=== PATIENT | female | born 2005 | race Caucasian/White ===

== ENCOUNTER 2024-05-15 09:28 | Outpatient (CLI) | payer MEDICAID, SELFPAY | END 2024-05-15 09:29 | disposition home or self-care (01) | LOC: NFLDREF 09:29 | PROVIDERS: PCP Family Medicine; Visit Provider Advanced Practice Midwife | DX: Z34.92 Encounter for supervision of normal pregnancy, unspecified, second trimester (principal); Z3A.15 15 weeks gestation of pregnancy | CPT/HCPCS: 80306 ==

== ENCOUNTER 2024-06-12 07:50 | Outpatient (CLI) | payer MEDICAID, SELFPAY ==
--- NOTE | 2024-06-12 08:15 | CRLHL7_ITS ---
For Patients: As a result of the Century Cures Act, medical imaging exams and procedure reports are released immediately into your electronic medical record. You may view this report before your referring provider. If you have questions, please contact your health care provider. INDICATION: Evaluate anatomy. COMPARISON: 04/10/2024 TECHNIQUE: Real time herzog scale imaging of the fetus was performed as well as color Doppler analysis of the umbilical vessels. FINDINGS: Sonographic imaging demonstrates a single living intrauterine gestation. Fetus demonstrates a regular cardiac rate of 139 beats per minute. Fetus has a vertex position. The placenta lies anterior without evidence of placenta previa. Placental edge 2.4 cm from the internal cervical os. Amniotic fluid volume appears normal. Single deepest vertical pocket: 2.9 cm. The cervix is closed and measures 3.9 cm in length. The composite ultrasound gestational age is calculated at 18 weeks 6 days with an estimated sonographic due date of 11/07/2024. The estimated weight is 265 grams which lies at the 15th %. The following biometric measurements were obtained: Biparietal diameter: 4.2 cm/18 weeks 5 days 19th% Head circumference: 15.5 cm/18 weeks 3 day 5th% Abdominal circumference: 13.6 cm/19 weeks 0 days 27th% Femur length: 2.9 cm/19 weeks 0 days 23rd% The HC/AC ratio measures: 1.14 range (1.09-1.26) On anatomic survey, there is a normal appearance of the cerebral ventricles, cavum septi pellucidi, cisterna magna and cerebellum. The nose, lips, and facial profile appear normal. The cervical, thoracic and lumbar spine are well visualized and appear normal. There is a normal four-chamber heart view and the left and right ventricular outflow tracts appear normal. The diaphragm and stomach appear normal. The kidneys and bladder also appear normal. There is a normal three-vessel cord and cord insertion site. The four extremities appear normal. IMPRESSION: Normal OB ultrasound exam with concordance of clinical and sonographic dating. No intrinsic abnormalities noted on anatomic survey. Dictated by Isrrael Garza MD @ 06/12/2024 10:56:41 AM (Electronically Signed)
== END 2024-06-12 07:51 | disposition home or self-care (01) ==
LOC: US 07:50
PROVIDERS: PCP Family Medicine; Visit Provider Advanced Practice Midwife
DX: Z34.92 Encounter for supervision of normal pregnancy, unspecified, second trimester (principal); Z3A.18 18 weeks gestation of pregnancy
CPT/HCPCS: 76805; 82565; 82570; 84156; 84450; 84460; 84520; 87491; 87591

== ENCOUNTER 2024-06-13 10:28 | Outpatient (CLI) | payer MEDICAID, SELFPAY | END 2024-06-13 10:29 | disposition home or self-care (01) | LOC: NFLDREF 14:28 | PROVIDERS: PCP Family Medicine; Referring Provider Family Medicine; Visit Provider Obstetrics & Gynecology | DX: R03.0 Elevated blood-pressure reading, without diagnosis of hypertension (principal) | CPT/HCPCS: 82570; 84156 ==

== ENCOUNTER 2024-07-28 20:24 | Observation (INO) | payer MEDICAID, SELFPAY ==
[2024-07-28] VITALS (12 sets, daily range): BP systolic 131–146; BP diastolic 89–106; PULSE 75–110; RESP 20; TEMP 36.5; O2SAT 96–99; BMI 34.3
--- NOTE | 2024-07-28 | CRLHL7_ITS ---
For Patients: As a result of the Century Cures Act, medical imaging exams and procedure reports are released immediately into your electronic medical record. You may view this report before your referring provider. If you have questions, please contact your health care provider. INDICATION: Chest pain. TECHNIQUE: CT chest PE was acquired with 95 cc Isovue 370 IV contrast. COMPARISON: Chest radiograph 07/28/2024. FINDINGS: Heart and vasculature: Contrast opacification of the pulmonary arterial tree is adequate. No sign of pulmonary embolism. Heart size is normal. Thoracic aorta and pulmonary artery are normal in caliber. Lungs and pleura: Lungs and pleural spaces are clear. No suspicious nodules or infiltrates. No pleural effusions, pleural thickening, or pneumothorax. Lymph nodes/mediastinum: No mediastinal, hilar, or axillary adenopathy. Chest wall: No masses. Upper abdomen: Please refer to separate concurrent CT abdomen and pelvis. Bones: Unremarkable for age. IMPRESSION: No evidence of pulmonary embolism or acute intrathoracic abnormality. Please note that all CT scans at this facility use dose modulation, iterative reconstruction, and/or weight-based dosing when appropriate to reduce radiation dose to as low as reasonably achievable. Dictated by Helio Kearns MD @ 07/28/2024 11:39:17 PM (Electronically Signed)
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
--- NOTE | 2024-07-28 20:49 | CRLHL7_ITS ---
For Patients: As a result of the Century Cures Act, medical imaging exams and procedure reports are released immediately into your electronic medical record. You may view this report before your referring provider. If you have questions, please contact your health care provider. INDICATION: Chest pain. TECHNIQUE: Chest 1 views. COMPARISON: None. FINDINGS: Mild cardiomegaly with mild pulmonary vascular congestion. No confluent airspace opacity. No pleural effusion or pneumothorax. No acute osseous abnormality IMPRESSION: Mild cardiomegaly with mild pulmonary vascular congestion. Dictated by Eliseo Vickers MD @ 07/28/2024 10:35:53 PM (Electronically Signed)
[2024-07-28 21:02] LABS: Basophils Percent Auto 0.3 % (0.0-3.0); Eosinophils Percent Auto 0.7 % (0.0-7.0); Hematocrit 35.9 % (33.0-51.0); Hemoglobin* 12.6 gm/dL (12.0-16.0); Immature Granulocytes Pct Auto 6.4 %; Lymphocytes Percent Auto 15.6 % (20-44); Mean Corpuscular HGB Conc 35 gm/dL (32-36); Mean Corpuscular Hemoglobin 33 pg (26-34); Mean Corpuscular Volume 95 fL (80-100); Monocytes Percent Auto 8.3 % (0.0-11.0); Neutrophils Percent Auto 68.7 % (42.0-72.0); Platelet Count* 255 K/uL (140-440); RDW Coefficient of Variation % 13.1 % (11.5-15.5)
[2024-07-28 21:08] LABS: Slide Review Reflex No
[2024-07-28 21:23] LABS: Chloride* 104 mmol/L (96-114)
[2024-07-28 21:24] LABS: Albumin* 4.4 g/dL (3.3-5.0); Sodium* 136 mmol/L (135-149)
[2024-07-28 21:25] LABS: Potassium* 3.7 mmol/L (3.6-5.1)
[2024-07-28 21:27] LABS: Alanine Aminotransferase* 19 U/L (4-35); Alkaline Phosphatase* 80 U/L (40-150); Anion Gap 11 mEq/L (7-15); Aspartate Amino Transferase* 23 U/L (12-35); Bilirubin Total* 0.2 mg/dL (0.1-1.5); Blood Urea Nitrogen* 9 mg/dL (5-24); Carbon Dioxide* 21 mmol/L (20-32); Creatinine* 0.5 mg/dL (0.5-1.5); Est. Creatinine Clearance* 154.98; Estimated Glomerular Filt Rate 138 ml/min; Total Protein* 7.3 g/dL (6.0-8.3)
[2024-07-28 21:28] LABS: Calcium* 9.8 mg/dL (8.4-10.6); Glucose* 100 mg/dL (60-115)
[2024-07-28 21:30] LABS: C Reactive Protein* 1.1 mg/dL (0.5-1.0)
--- NOTE | 2024-07-28 21:51 | CRLHL7_ITS ---
For Patients: As a result of the Century Cures Act, medical imaging exams and procedure reports are released immediately into your electronic medical record. You may view this report before your referring provider. If you have questions, please contact your health care provider. INDICATION: Left upper quadrant pain. TECHNIQUE: CT abdomen and pelvis acquired with 95 cc Isovue 370 IV contrast. COMPARISON: None. FINDINGS: Lower chest: Please refer to separate concurrent CT chest PE. Liver: Unremarkable. Normal in size and attenuation. No suspicious masses. Gallbladder and bile ducts: Unremarkable. No stones or inflammation. No biliary ductal dilatation. Spleen: Unremarkable. Normal in size. No masses. Adrenal glands: Unremarkable. No nodules. Pancreas: Unremarkable. No mass or inflammation. Kidneys: Unremarkable. No suspicious masses, stones, or hydronephrosis. GI tract: Unremarkable. Normal in caliber. No evidence of obstruction. Normal appendix. Lymph nodes: No lymphadenopathy. Vasculature: Unremarkable. Omentum/Peritoneum/Abdominal Wall: Unremarkable. No free air or significant free fluid. Pelvis: Gravid uterus. Bones: Unremarkable for age. IMPRESSION: No acute abdominal or pelvic abnormality. Please note that all CT scans at this facility use dose modulation, iterative reconstruction, and/or weight-based dosing when appropriate to reduce radiation dose to as low as reasonably achievable. Dictated by Helio Kearns MD @ 07/28/2024 11:43:40 PM (Electronically Signed)
[2024-07-28 21:57] LABS: PCR FLU A Negative PCR FLU A (Negative); PCR FLU B Negative PCR FLU B (Negative); PCR RSV Negative PCR RSV (Negative); SARS PCR* Negative SARS-CoV-2 (Negative)
--- NOTE | 2024-07-28 21:57 | PC.OBNST ---
NST Note NST Note Start: 07/28/24 21:55 Freq: ONCE Status: Active Protocol: Document 07/28/24 21:55 [facility] (Rec: 07/28/24 21:57 [facility] [id number]) NST Note 1 Para (# of births) 0 EDC 11/02/24 Gestational Age In Weeks & Days 26 Weeks & 1 Days Patient Presented with Complaint(s) of Pain,Headache If Pain, describe location Chest pain, SOB; seen in ED Reactive Yes Appropriate for Gestational Age Yes RN Beth Duckworth RN Date 07/28/24 Reactive Yes Appropriate for Gestational Age Yes RN Karis Herbert RN Date 07/28/24 OB NST charge Yes Complete NST Note via Write Note Yes The provider's electronic signature indicates the NST is reactive/appropriate for gestational age. *Note to provider: If an addendum is required, open the patient's chart and click on the note under the Nurse/Allied Health tab.
--- NOTE | 2024-07-28 21:58 | PC.OBNST ---
NST Note NST Note Start: 07/28/24 21:55 Freq: ONCE Status: Active Protocol: Document 07/28/24 21:55 [facility] (Rec: 07/28/24 21:57 [facility] [id number]) NST Note 1 Para (# of births) 0 EDC 11/02/24 Gestational Age In Weeks & Days 26 Weeks & 1 Days Patient Presented with Complaint(s) of Pain,Headache If Pain, describe location Chest pain, SOB; seen in ED Reactive Yes Appropriate for Gestational Age Yes RN Beth Duckworth RN Date 07/28/24 Reactive Yes Appropriate for Gestational Age Yes RN Karis Herbert RN Date 07/28/24 OB NST charge Yes Complete NST Note via Write Note Yes The provider's electronic signature indicates the NST is reactive/appropriate for gestational age. *Note to provider: If an addendum is required, open the patient's chart and click on the note under the Nurse/Allied Health tab.
[2024-07-28 22:17] LABS: Amphetamine Screen Urine Negative (Negative); Barbiturate Screen Urine Negative (Negative); Benzodiazepines Screen Urine Negative (Negative); Cannabinoid Screen Urine Negative (Negative); Cocaine Screen Urine Negative (Negative); Methadone Screen Urine Negative (Negative); Methamphetamines Screen Urine Negative (Negative); Opiate Screen Urine Negative (Negative); Oxycodone Screen Urine Negative (Negative); Phencyclidine Screen Urine Negative (Negative); Tricyclic Antidepressant Urine Negative (Negative)
--- NOTE | 2024-07-28 22:21 | ED.NURSE ---
Pt's last BP was 146/95, per Dr Barker, Dr. Ovalle was notified.
[2024-07-28 23:41] LABS: NT Pro B Type NatriureticPept* 73 pg/mL
[2024-07-29] MEDS: ONDANSETRON 2 MG/ML inj 4 MG IVP (00:13)
[2024-07-29] MEDS: MORPHINE 4 MG/ML INJ IVP (00:14)
[2024-07-29] MEDS: FAMOTIDINE 10 MG/ML inj 20 MG IVP (00:15)
[2024-07-29] MEDS: ASPIRIN 81 MG TAB.CHEW PO (00:19)
[2024-07-29] MEDS: LABETALOL HCL 100 MG TABLET PO (00:22)
[2024-07-29 00:42] VITALS: BP 118/69; PULSE 66
[2024-07-29 00:56] LABS: Appearance Urine Clear (Clear); Bilirubin Urine Negative (Negative); Blood Urine Negative (Negative); Color Urine Yellow (Yellow); Glucose Urine Negative (Negative); Ketones Urine Negative (Negative); Leukocyte Esterase Urine Negative (Negative); Nitrite Urine Negative (Negative); Protein Urine Negative (Negative); Specific Gravity Urine 1.015 (1.000-1.030); Urobilinogen Urine 0.2 (0.2-1.0)
[2024-07-29 00:59] LABS: RBC Urine 0-2 (0-2); Squamous Epithelial Cell Urine Few (None-Few); WBC Urine 0-2 (0-5)
[2024-07-29 01:11] LABS: Total Protein Urine 12 mg/dL
[2024-07-29 01:12] LABS: Creatinine Urine 27.7 mg/dL; Protein Creatinine Ratio Urine 0.43 (0-0.19)
[2024-07-29 01:14] VITALS: BP 104/63; PULSE 67
--- NOTE | 2024-07-29 01:20 | PC.OBNST ---
NST Note NST Note Start: 07/28/24 21:55 Freq: ONCE Status: Complete Protocol: Document 07/28/24 21:55 EA (Rec: 07/28/24 21:57 EA [id number]) NST Note 1 Para (# of births) 0 EDC 11/02/24 Gestational Age In Weeks & Days 26 Weeks & 1 Days Patient Presented with Complaint(s) of Pain,Headache If Pain, describe location Chest pain, SOB; seen in ED Reactive Yes Appropriate for Gestational Age Yes RN Beth Duckworth RN Date 07/28/24 Reactive Yes Appropriate for Gestational Age Yes RN Karis Herbert RN Date 07/28/24 OB NST charge Yes Complete NST Note via Write Note Yes NST Note Start: 07/29/24 00:35 Freq: ONCE Status: Active Protocol: Document 07/29/24 01:17 POT (Rec: 07/29/24 01:20 POT [id number]) NST Note 2 Para (# of births) 0 EDC 11/02/24 Gestational Age In Weeks & Days 26 Weeks & 2 Days High Risk Factors High Blood Pressure - Gestational Patient Presented with Complaint(s) of Pain,Other If Pain, describe location chest Other Complaints arrived to ED with complaints of chest pain and shortness of breath. Pt hypertensive in ED Reactive Yes Appropriate for Gestational Age Yes TAMIA Martin RN Date 07/29/24 Reactive Yes Appropriate for Gestational Age Yes TAMIA Duckworth RN Date 07/29/24 OB NST charge Yes Complete NST Note via Write Note Yes The provider's electronic signature indicates the NST is reactive/appropriate for gestational age. *Note to provider: If an addendum is required, open the patient's chart and click on the note under the Nurse/Allied Health tab.
--- NOTE | 2024-07-29 02:13 | W.PM.VAGDEL1 ---
Procedure Delivery date: 07/29/24 Procedure Done: [employer]
--- NOTE | 2024-07-29 02:18 | P.OBLDTN_ITS ---
OB - Triage/Final Diagnosis Visit Information Time Seen by Provider: 03:00 Date Seen: 07/29/24 Narrative: The patient is a 19 year old 2 para 0010 at 26w2d gestation by LMP, who presented to ED with worsening chest pain and SOB that started on 07/28. She rep orts intermittent coughing as well. Developed a headache from having to catch her breath. Headache is bitemporal. She has diagnosis of chronic hypertension where baseline labs were significant for a P/C ratio of 0.48 and a 24 hour protein of 339.5 mg/24hr. Denies any vision changes, right upper quadrant/epigastric pain, or rapidly expanding edema. Due to her CHTN, she was instructed to monitor her BP QD and start on LDA. However, she discontinued her LDA recently as she felt it was causing her BP to be low. Advised resuming aspirin as her lower BP is a physiological phenomenon in the 2nd trimester of not due to the LDA. Active movement. Denies Ctx, LOF, vaginal bleeding or abnormal vaginal discharge. ED evaluation: - Significant for persistent mild ranging BP: 131/95, 136/95, 140/106, 146/93 - Pre-eclampsia labs on 07/28: Hgb 12.6 Plt 255 Cr 0.5 ALT 19 AST 23 P/C ratio 0.43 - 24 hr urine protein/cr pending [] - O2 sat >95 - EKG wnl - Trop 0.00 - URI panel negative. - UTox negative - CXRAY: Mild cardiomegaly with mild pulmonary vascular congestion. - CT for rule out PE: No evidence of pulmonary embolism or acute intrathoracic abnormality. - CTAP: No acute abdominal or pelvic abnormality She was given IV pepcid and morphine for chest pain in the ED. Contacted by Dr. Barker for recommendation. Plan: - Start labetalol 100 mg BID - Admit to for observation and BP monitoring overnight as patient's chest pain has not completely resolved and for r/o superimposed pre-eclampsia - Will start collecting 24hour urine Upon arrive to the L&D, patient was resting comfortably and reported improvement in symptomatology. NST: 120 bpm. AGA. [place]: Quiescent Evaluation Laboratory results: Laboratory Tests 07/29/24 07/28/24 07/28/24 Range/Units 00:11 23:10 21:59 WBC (4.50-11.00) K/uL RBC (4.00-5.20) m/uL Hgb (12.0-16.0) gm/dL Hct (33.0-51.0) % MCV (80-100) fL MCH (26-34) pg MCHC (32-36) gm/dL RDW Coeff of Leon (11.5-15.5) % Plt Count (140-440) K/uL Neut % (Auto) (42.0-72.0) % Lymph % (Auto) (20-44) % [place] % (Auto) (0.0-11.0) % Eos % (Auto) (0.0-7.0) % Baso % (Auto) (0.0-3.0) % Neut # (Auto) (1.7-7.0) K/uL Lymph # (Auto) (0.90-2.90) K/uL [place] # (Auto) (0.00-0.90) K/UL Eos # (Auto) (0.00-0.50) K/uL Baso # (Auto) (0.00-0.30) K/uL Abs Immat Gran (auto) (0.00-0.30) K/uL Imm/Tot Granulo (auto) % Sodium (135-149) mmol/L Potassium (3.6-5.1) mmol/L Chloride (96-114) mmol/L Carbon Dioxide (20-32) mmol/L Anion Gap (7-15) mEq/L BUN (5-24) mg/dL Creatinine (0.5-1.5) mg/dL Estimated Creat Clear Estimated GFR ml/min Glucose (60-115) mg/dL Calcium (8.4-10.6) mg/dL Total Bilirubin (0.1-1.5) mg/dL AST (12-35) U/L ALT (4-35) U/L Alkaline Phosphatase (40-150) U/L C-Reactive Protein (0.5-1.0) mg/dL NT-Pro-B Natriuret Pep pg/mL Total Protein (6.0-8.3) g/dL Albumin (3.3-5.0) g/dL Urine Color Yellow (Yellow) Urine Appearance Clear (Clear) Urine pH 7.0 (5.0-8.5) Ur Specific [place] 1.015 (1.000-1.030) Urine Protein Negative (Negative) Urine Glucose (UA) Negative (Negative) Urine Ketones Negative (Negative) Urine Blood Negative (Negative) Urine Nitrite Negative (Negative) Urine Bilirubin Negative (Negative) Urine Urobilinogen 0.2 (0.2-1.0) Ur Leukocyte Esterase Negative (Negative) Urine RBC 0-2 (0-2) Urine WBC 0-2 (0-5) Ur Squamous Epith Cells Few (None-Few) Urine Bacteria None (None) Urine Creatinine mg/dL Protein/Creatinin Ratio (0-0.19) Urine Total Protein mg/dL Urine Opiates Screen Negative (Negative) Ur Oxycodone Screen Negative (Negative) Urine Methadone Screen Negative (Negative) Ur Barbiturates Screen Negative (Negative) U Tricyclic Antidepress Negative (Negative) Ur Phencyclidine Scrn Negative (Negative) Ur Amphetamines Screen Negative (Negative) U Methamphetamines Scrn Negative (Negative) U Benzodiazepines Scrn Negative (Negative) Urine Cocaine Screen Negative (Negative) U Marijuana (THC) Screen Negative (Negative) Ur Drug Screen Comment See Note SARS-CoV-2 (PCR) (Negative) Influenza Type A (PCR) (Negative) Influenza Type B (PCR) (Negative) RSV (PCR) (Negative) Lab Acknowledgement Test Added POC Troponin I (0.01-0.04) ng/ml 07/28/24 07/28/24 07/28/24 Range/Units 21:35 21:10 20:49 WBC (4.50-11.00) K/uL RBC (4.00-5.20) m/uL Hgb (12.0-16.0) gm/dL Hct (33.0-51.0) % MCV (80-100) fL MCH (26-34) pg MCHC (32-36) gm/dL RDW Coeff of [place] (11.5-15.5) % Plt Count (140-440) K/uL Neut % (Auto) (42.0-72.0) % Lymph % (Auto) (20-44) % [place] % (Auto) (0.0-11.0) % Eos % (Auto) (0.0-7.0) % Baso % (Auto) (0.0-3.0) % Neut # (Auto) (1.7-7.0) K/uL Lymph # (Auto) (0.90-2.90) K/uL [place] # (Auto) (0.00-0.90) K/UL Eos # (Auto) (0.00-0.50) K/uL Baso # (Auto) (0.00-0.30) K/uL Abs Immat Gran (auto) (0.00-0.30) K/uL Imm/Tot Granulo (auto) % Sodium (135-149) mmol/L Potassium (3.6-5.1) mmol/L Chloride (96-114) mmol/L Carbon Dioxide (20-32) mmol/L Anion Gap (7-15) mEq/L BUN (5-24) mg/dL Creatinine (0.5-1.5) mg/dL Estimated Creat Clear Estimated GFR ml/min Glucose (60-115) mg/dL Calcium (8.4-10.6) mg/dL Total Bilirubin (0.1-1.5) mg/dL AST (12-35) U/L ALT (4-35) U/L Alkaline Phosphatase (40-150) U/L C-Reactive Protein (0.5-1.0) mg/dL NT-Pro-B Natriuret Pep pg/mL Total Protein (6.0-8.3) g/dL Albumin (3.3-5.0) g/dL Urine Color (Yellow) Urine Appearance (Clear) Urine pH (5.0-8.5) Ur Specific [place] (1.000-1.030) Urine Protein (Negative) Urine Glucose (UA) (Negative) Urine Ketones (Negative) Urine Blood (Negative) Urine Nitrite (Negative) Urine Bilirubin (Negative) Urine Urobilinogen (0.2-1.0) Ur Leukocyte Esterase (Negative) Urine RBC (0-2) Urine WBC (0-5) Ur Squamous Epith Cells (None-Few) Urine Bacteria (None) Urine Creatinine 27.7 mg/dL Protein/Creatinin Ratio 0.43 H (0-0.19) Urine Total Protein 12 mg/dL Urine Opiates Screen (Negative) Ur Oxycodone Screen (Negative) Urine Methadone Screen (Negative) Ur Barbiturates Screen (Negative) U Tricyclic Antidepress (Negative) Ur Phencyclidine Scrn (Negative) Ur Amphetamines Screen (Negative) U Methamphetamines Scrn (Negative) U Benzodiazepines Scrn (Negative) Urine Cocaine Screen (Negative) U Marijuana (THC) Screen (Negative) Ur Drug Screen Comment SARS-CoV-2 (PCR) Negative SARS-CoV-2 (Negative) Influenza Type A (PCR) Negative PCR FLU A (Negative) Influenza Type B (PCR) Negative PCR FLU B (Negative) RSV (PCR) Negative PCR RSV (Negative) Lab Acknowledgement POC Troponin I 0.00 L (0.01-0.04) ng/ml 07/28/24 Range/Units 20:44 WBC 16.30 H (4.50-11.00) K/uL RBC 3.80 L (4.00-5.20) m/uL Hgb 12.6 (12.0-16.0) gm/dL Hct 35.9 (33.0-51.0) % MCV 95 (80-100) fL MCH 33 (26-34) pg MCHC 35 (32-36) gm/dL RDW Coeff of [place] 13.1 (11.5-15.5) % Plt Count 255 (140-440) K/uL Neut % (Auto) 68.7 (42.0-72.0) % Lymph % (Auto) 15.6 L (20-44) % [place] % (Auto) 8.3 (0.0-11.0) % Eos % (Auto) 0.7 (0.0-7.0) % Baso % (Auto) 0.3 (0.0-3.0) % Neut # (Auto) 11.20 H (1.7-7.0) K/uL Lymph # (Auto) 2.50 (0.90-2.90) K/uL [place] # (Auto) 1.40 H (0.00-0.90) K/UL Eos # (Auto) 0.10 (0.00-0.50) K/uL Baso # (Auto) 0.00 (0.00-0.30) K/uL Abs Immat Gran (auto) 1.00 H (0.00-0.30) K/uL Imm/Tot Granulo (auto) 6.4 % Sodium 136 (135-149) mmol/L Potassium 3.7 (3.6-5.1) mmol/L Chloride 104 (96-114) mmol/L Carbon Dioxide 21 (20-32) mmol/L Anion Gap 11 (7-15) mEq/L BUN 9 (5-24) mg/dL Creatinine 0.5 (0.5-1.5) mg/dL Estimated Creat Clear 154.98 Estimated GFR 138 ml/min Glucose 100 (60-115) mg/dL Calcium 9.8 (8.4-10.6) mg/dL Total Bilirubin 0.2 (0.1-1.5) mg/dL AST 23 (12-35) U/L ALT 19 (4-35) U/L Alkaline Phosphatase 80 (40-150) U/L C-Reactive Protein 1.1 H (0.5-1.0) mg/dL NT-Pro-B Natriuret Pep 73 pg/mL Total Protein 7.3 (6.0-8.3) g/dL Albumin 4.4 (3.3-5.0) g/dL Urine Color (Yellow) Urine Appearance (Clear) Urine pH (5.0-8.5) Ur Specific [place] (1.000-1.030) Urine Protein (Negative) Urine Glucose (UA) (Negative) Urine Ketones (Negative) Urine Blood (Negative) Urine Nitrite (Negative) Urine Bilirubin (Negative) Urine Urobilinogen (0.2-1.0) Ur Leukocyte Esterase (Negative) Urine RBC (0-2) Urine WBC (0-5) Ur Squamous Epith Cells (None-Few) Urine Bacteria (None) Urine Creatinine mg/dL Protein/Creatinin Ratio (0-0.19) Urine Total Protein mg/dL Urine Opiates Screen (Negative) Ur Oxycodone Screen (Negative) Urine Methadone Screen (Negative) Ur Barbiturates Screen (Negative) U Tricyclic Antidepress (Negative) Ur Phencyclidine Scrn (Negative) Ur Amphetamines Screen (Negative) U Methamphetamines Scrn (Negative) U Benzodiazepines Scrn (Negative) Urine Cocaine Screen (Negative) U Marijuana (THC) Screen (Negative) Ur Drug Screen Comment SARS-CoV-2 (PCR) (Negative) Influenza Type A (PCR) (Negative) Influenza Type B (PCR) (Negative) RSV (PCR) (Negative) Lab Acknowledgement POC Troponin I (0.01-0.04) ng/ml Vital signs: Vital Signs - 24 hr 07/28/24 20:41 07/28/24 20:55 07/28/24 21:12 Temperature 97.7 F Pulse Rate 82 Pulse Rate [Pulse Oximeter] 110 H Respiratory Rate 20 Blood Pressure Blood Pressure [Right Upper Arm] 137/89 Pulse Oximetry 99 98 98 Oxygen Delivery Method Room Air 07/28/24 21:15 07/28/24 21:16 07/28/24 21:30 Temperature Pulse Rate 83 80 85 Pulse Rate [Pulse Oximeter] Respiratory Rate Blood Pressure 131/95 H Blood Pressure [Right Upper Arm] Pulse Oximetry 98 98 98 Oxygen Delivery Method 07/28/24 21:31 07/28/24 21:45 07/28/24 21:46 Temperature Pulse Rate 102 H 90 80 Pulse Rate [Pulse Oximeter] Respiratory Rate Blood Pressure 136/95 H 140/106 H Blood Pressure [Right Upper Arm] Pulse Oximetry 98 97 97 Oxygen Delivery Method 07/28/24 21:47 07/28/24 22:03 07/28/24 22:20 Temperature Pulse Rate 75 90 Pulse Rate [Pulse Oximeter] Respiratory Rate Blood Pressure 146/93 H Blood Pressure [Right Upper Arm] Pulse Oximetry 98 96 Oxygen Delivery Method 07/29/24 00:42 07/29/24 01:14 Temperature Pulse Rate 66 67 Pulse Rate [Pulse Oximeter] Respiratory Rate Blood Pressure 118/69 104/63 Blood Pressure [Right Upper Arm] Pulse Oximetry Oxygen Delivery Method
[2024-07-29 03:12] VITALS: BP 145/80; PULSE 93
[2024-07-29] MEDS: ACETAMINOPHEN 500 MG TABLET 1000 MG PO (03:26)
[2024-07-29] MEDS: hydrOXYzine pamoate 25 MG CAPSULE 50 MG PO (03:27)
[2024-07-29 03:28] VITALS: BP 129/73; PULSE 71
[2024-07-29 07:30] VITALS: BP 107/54; PULSE 73; RESP 16
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
[2024-07-29] MEDS: DOCUSATE SODIUM 100 MG CAPSULE PO (08:56)
[2024-07-29] MEDS: OMEPRAZOLE 20 MG CAPSULE DR PO (08:56)
== END 2024-07-29 09:30 | disposition home or self-care (01) ==
LOC: ED 23:56 → OB 07-29 00:22
PROVIDERS: Admitting Provider Obstetrics & Gynecology; Emergency Provider Family Medicine; PCP Obstetrics & Gynecology; Visit Provider Obstetrics & Gynecology
DX: R07.9 Chest pain, unspecified (principal); O16.9 Unspecified maternal hypertension, unspecified trimester; R10.12 Left upper quadrant pain; K21.9 Gastro-esophageal reflux disease without esophagitis; R51.9 Headache, unspecified; M54.9 Dorsalgia, unspecified; R42 Dizziness and giddiness; I51.7 Cardiomegaly; R01.1 Cardiac murmur, unspecified; R06.02 Shortness of breath; F12.11 Cannabis abuse, in remission; F41.9 Anxiety disorder, unspecified; O47.9 False labor, unspecified; Z3A.00 Weeks of gestation of pregnancy not specified; Z79.82 Long term (current) use of aspirin; K08.409 Partial loss of teeth, unspecified cause, unspecified class; F43.10 Post-traumatic stress disorder, unspecified; Z62.810 Personal history of physical and sexual abuse in childhood; Z87.891 Personal history of nicotine dependence
CPT/HCPCS: 36415; 59025; 71045; 71275; 74177; 80053; 80306; 81001; 82570; 83880; 84156; 84484; 85025; 86140; 87631; 93005; 94761; 96374; 96375; 99284; 99285; A9270; G0378; J2270; J2405; Q9967; S0028

== ENCOUNTER 2024-07-31 09:06 | Outpatient (CLI) | payer MEDICAID, SELFPAY | END 2024-07-31 09:07 | disposition home or self-care (01) | LOC: NFLDREF 09:06 | PROVIDERS: PCP Obstetrics & Gynecology; Visit Provider Obstetrics & Gynecology | DX: Z34.92 Encounter for supervision of normal pregnancy, unspecified, second trimester (principal); Z3A.26 26 weeks gestation of pregnancy | CPT/HCPCS: 82570; 84156 ==

== ENCOUNTER 2024-08-04 10:00 | Outpatient (CLI) | payer MEDICAID, SELFPAY | END 2024-08-04 10:01 | disposition home or self-care (01) | LOC: NFLDREF 08-06 07:49 | PROVIDERS: Referring Provider Family Medicine; Visit Provider Obstetrics & Gynecology | DX: Z34.83 Encounter for supervision of other normal pregnancy, third trimester (principal) | CPT/HCPCS: 86592 ==

== ENCOUNTER 2024-08-09 08:32 | Outpatient (CLI) | payer MEDICAID, SELFPAY | END 2024-08-09 08:33 | disposition home or self-care (01) | LOC: NFLDREF 09:59 | PROVIDERS: Visit Provider Obstetrics & Gynecology | DX: O99.810 Abnormal glucose complicating pregnancy (principal) | CPT/HCPCS: 82951; 82952 ==

== ENCOUNTER 2024-09-06 13:29 | Outpatient (CLI) | payer MEDICAID, SELFPAY ==
--- NOTE | 2024-09-06 13:45 | CRLHL7_ITS ---
For Patients: As a result of the Century Cures Act, medical imaging exams and procedure reports are released immediately into your electronic medical record. You may view this report before your referring provider. If you have questions, please contact your health care provider. INDICATION: Chronic hypertension TECHNIQUE: Real time herzog scale imaging of the fetus was performed. COMPARISON: 06/12/2024 FINDINGS: Sonographic imaging demonstrates a single living intrauterine gestation. Fetus demonstrates a regular cardiac rate of 139 beats per minute. Fetus has a vertex position. The placenta lies anteriorly. Amniotic fluid volume appears normal and there is a single deepest pocket of 5.8 cm. The estimated weight is 1701gm which lies at the 18th %. On the prior OB ultrasound dated 06/12/2024 the estimated weight was at the 15th percentile. BPD and HC less than 3rd percentile. HC 48th percentile. FL 11th percentile. The fetus was active and demonstrated normal breathing movements. There was normal flexion and extension of the trunk and extremities. IMPRESSION: Normal biophysical profile score 8/8. Sonographic gestational age 30 weeks 4 days and sonographic due date 11/11/2024. Sonographic age 9 days behind the clinical age. Estimated weight 18th percentile. Abdominal circumference 48th percentile. BPD and HC less than 3rd percentile. Dictated by Isrrael Garza MD @ 09/07/2024 6:26:31 AM (Electronically Signed)
== END 2024-09-06 13:30 | disposition home or self-care (01) ==
LOC: US 13:30
PROVIDERS: Visit Provider Obstetrics & Gynecology
DX: O10.913 Unspecified pre-existing hypertension complicating pregnancy, third trimester (principal); O36.63X0 Maternal care for excessive fetal growth, third trimester, not applicable or unspecified; Z3A.30 30 weeks gestation of pregnancy
CPT/HCPCS: 76816; 76819

== ENCOUNTER 2024-09-14 08:01 | Outpatient (CLI) | payer MEDICAID, SELFPAY ==
--- NOTE | 2024-09-14 08:15 | CRLHL7_ITS ---
For Patients: As a result of the Cures Act, medical imaging exams and procedure reports are released immediately into your electronic medical record. You may view this report before your referring provider. If you have questions, please contact your health care provider. INDICATION: Chronic hypertension COMPARISON: Biophysical profile from 09/06/2024 FINDINGS: Transabdominal examination of the is performed. A single intrauterine gestation is seen in cephalic presentation with regular cardiac activity at 129 beats per minute. The placenta is anterior and is free of the cervical os. The placental grade is 0 and the amniotic fluid volume is normal. The DVP is normal at 4.7 cm slightly decreased from 5.8 cm on the previous. The biophysical profile score is 8/8 with no points off. IMPRESSION: 1. Single intrauterine gestation in cephalic presentation with regular cardiac activity. 2. Normal DVP at 4.7 cm, slightly decreased from the previous study. 3. Normal biophysical profile score of 8/8. Dictated by Zackary Solitario MD @ 09/14/2024 10:53:57 AM (Electronically Signed)
== END 2024-09-14 08:02 | disposition home or self-care (01) ==
LOC: US 08:01
PROVIDERS: Visit Provider Obstetrics & Gynecology
DX: O10.919 Unspecified pre-existing hypertension complicating pregnancy, unspecified trimester (principal)
CPT/HCPCS: 76819

== ENCOUNTER 2024-09-20 12:49 | Outpatient (CLI) | payer MEDICAID, SELFPAY ==
--- NOTE | 2024-09-20 13:00 | CRLHL7_ITS ---
For Patients: As a result of the Century Cures Act, medical imaging exams and procedure reports are released immediately into your electronic medical record. You may view this report before your referring provider. If you have questions, please contact your health care provider. INDICATION: Hypertension TECHNIQUE: Limited transabdominal two-dimensional herzog-scale ultrasound examination. COMPARISON: 09/14/2024 FINDINGS: There is a living fetus in cephalic lie with gestational age of 33 weeks 6 days and EDC of 11/02/2024. The biophysical profile score is 8/8 with component scores of 2 for breathing movements, 2 for gross body movements, 2 for tone and 2 for amniotic fluid/SDP. The heart rate is measured at 141 beats per minute and the rhythm appears regular. The amniotic fluid volume is within normal limits with single deepest pocket of 5.3 cm. The placenta is anterior and superior to the cervical os. There is no evidence of previa. IMPRESSION: 1. Living fetus in cephalic lie with gestational age of 33 weeks 6 days and EDC of 11/02/2024. 2. Biophysical profile score is 8/8. Dictated by Bienvenido Soares MD @ 09/23/2024 6:08:12 AM (Electronically Signed)
== END 2024-09-20 12:50 | disposition home or self-care (01) ==
LOC: US 12:50
PROVIDERS: Visit Provider Obstetrics & Gynecology
DX: O16.3 Unspecified maternal hypertension, third trimester (principal); Z3A.33 33 weeks gestation of pregnancy
CPT/HCPCS: 76819

== ENCOUNTER 2024-09-27 12:02 | Outpatient (CLI) | payer MEDICAID, SELFPAY ==
--- NOTE | 2024-09-27 12:15 | CRLHL7_ITS ---
For Patients: As a result of the Cures Act, medical imaging exams and procedure reports are released immediately into your electronic medical record. You may view this report before your referring provider. If you have questions, please contact your health care provider. INDICATION: Chronic hypertension. COMPARISON: Biophysical profile from 09/20/2024 FINDINGS: Transabdominal examination of the is performed. A single intrauterine gestation is seen in cephalic presentation with regular cardiac activity at 145 beats per minute. The placenta is anterior and is free of the cervical os. The placental grade is 1 and the amniotic fluid volume is normal. The DVP is normal at 6.0 cm, minimally increased from the previous study where it measured 5.3 cm. The biophysical profile score is 8/8 with no points off. IMPRESSION: 1. Single intrauterine gestation in cephalic presentation with regular cardiac activity. 2. Normal DVP at 6.0 cm, minimally increased from the previous study. 3. Normal biophysical profile score of 8/8. Dictated by Zackary Solitario MD @ 09/27/2024 11:25:57 PM (Electronically Signed)
== END 2024-09-27 12:03 | disposition home or self-care (01) ==
LOC: US 12:02
PROVIDERS: Visit Provider Obstetrics & Gynecology
DX: O10.919 Unspecified pre-existing hypertension complicating pregnancy, unspecified trimester (principal); O26.893 Other specified pregnancy related conditions, third trimester; R10.2 Pelvic and perineal pain; Z3A.34 34 weeks gestation of pregnancy
CPT/HCPCS: 76819

== ENCOUNTER 2024-09-27 13:37 | Outpatient (CLI) | payer MEDICAID, SELFPAY | END 2024-09-27 13:38 | disposition home or self-care (01) | PROVIDERS: Visit Provider Obstetrics & Gynecology | DX: O26.893 Other specified pregnancy related conditions, third trimester (principal); R10.2 Pelvic and perineal pain; Z3A.34 34 weeks gestation of pregnancy | CPT/HCPCS: 87086 ==

== ENCOUNTER 2024-09-29 22:46 | Inpatient (IN) | payer MEDICAID, SELFPAY ==
[2024-09-29] VITALS (16 sets, daily range): BP systolic 127–154; BP diastolic 77–102; PULSE 83–133; O2SAT 96–98
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
[2024-09-29 21:00] LABS: Hematocrit 34.8 % (33.0-51.0); Hemoglobin* 12.3 gm/dL (12.0-16.0); Mean Corpuscular HGB Conc 35 gm/dL (32-36); Mean Corpuscular Hemoglobin 34 pg (26-34); Mean Corpuscular Volume 96 fL (80-100); Platelet Count* 203 K/uL (140-440); Red Blood Count 3.62 m/uL (4.00-5.20); White Blood Count* 12.87 K/uL (4.50-11.00)
[2024-09-29 21:01] LABS: Appearance Urine Clear (Clear); Bilirubin Urine Negative (Negative); Blood Urine Negative (Negative); Color Urine Yellow (Yellow); Glucose Urine Negative (Negative); Ketones Urine Negative (Negative); Leukocyte Esterase Urine Trace (Negative); Nitrite Urine Negative (Negative); Protein Urine Negative (Negative); Urobilinogen Urine 0.2 (0.2-1.0); pH Urine 5.5 (5.0-8.5)
[2024-09-29 21:16] LABS: Slide Review Reflex No
[2024-09-29 21:17] LABS: Creatinine* 0.4 mg/dL (0.5-1.5); Estimated Glomerular Filt Rate 145 ml/min
[2024-09-29 21:18] LABS: Alanine Aminotransferase* 18 U/L (4-35); Aspartate Amino Transferase* 26 U/L (12-35); Blood Urea Nitrogen* 7 mg/dL (5-24)
[2024-09-29 21:31] LABS: Total Protein Urine 26 mg/dL
[2024-09-29 21:32] LABS: Creatinine Urine 57.8 mg/dL; Protein Creatinine Ratio Urine 0.45 (0-0.19)
[2024-09-29 21:38] LABS: RBC Urine 0-2 (0-2); Squamous Epithelial Cell Urine Moderate (None-Few)
[2024-09-29 21:39] LABS: Bacteria Urine Moderate
[2024-09-29] MEDS: LACTATED RINGERS 1000 ML 1,000 ML 125 ML IV (22:00)
[2024-09-29] MEDS: BETAMETHASONE SOD PHOS/ACETATE 6 MG/ML ML 12 MG IM (22:03)
[2024-09-29] MEDS: LACTATED RINGERS 1000 ML 1,000 ML IV (22:04)
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
[2024-09-29] MEDS: AMPICILLIN 2 GM in 0.9 % SODIUM CHLORIDE Mini-bag 100 ML IVPB (23:14)
[2024-09-29] MEDS: LABETALOL HCL 100 MG TABLET PO (23:18)
[2024-09-29] MEDS: hydrOXYzine pamoate 25 MG CAPSULE 100 MG PO (23:22)
[2024-09-29] MEDS: MORPHINE 10 MG/ML inj IM (23:23)
[2024-09-30] VITALS (86 sets, daily range): BP systolic 94–146; BP diastolic 48–89; PULSE 67–139; RESP 16–18; TEMP 36.6–37.2; O2SAT 90–100; BMI 34.9
[2024-09-30 02:36] LABS: Amphetamine Screen Urine Negative (Negative); Barbiturate Screen Urine Negative (Negative); Benzodiazepines Screen Urine Negative (Negative); Cannabinoid Screen Urine Negative (Negative); Cocaine Screen Urine Negative (Negative); Methadone Screen Urine Negative (Negative); Methamphetamines Screen Urine Negative (Negative); Opiate Screen Urine Negative (Negative); Oxycodone Screen Urine Negative (Negative); Phencyclidine Screen Urine Negative (Negative); Tricyclic Antidepressant Urine Negative (Negative)
[2024-09-30] MEDS: AMPICILLIN 1 GM in 0.9 % SODIUM CHLORIDE Mini-bag 100 ML IVPB ×6 (03:37→22:18)
[2024-09-30] MEDS: LABETALOL HCL 100 MG TABLET PO (09:11)
[2024-09-30] MEDS: LACTATED RINGERS 1000 ML 1,000 ML 125 ML IV ×2 (09:18→10:32)
[2024-09-30] MEDS: BETAMETHASONE SOD PHOS/ACETATE 6 MG/ML ML 12 MG IM (09:35)
--- NOTE | 2024-09-30 09:58 | P.OBPN_ITS ---
Subjective Date Seen: 09/30/24 Narrative: Contractions continue to feel stronger. Objective Vital Signs: Last Vital Signs Temp 98.4 F 09/30/24 09:22 Pulse 87 09/30/24 09:12 Resp 16 09/30/24 09:22 BP 113/64 09/30/24 09:12 Pulse Ox 98 09/29/24 20:07 Pelvic Exam Dilation (cm): 5.5 Effacement (%): 90 Station: 0 Contractions Monitor mode: External Contraction pattern: Regular Contraction intensity: Moderate Assessment Heart Rate Baseline: 150 Chcf Variability: Minimal (3-5) (Episodes of minimal variability after IV sedation, in general moderate variability) Monitor Accelerations: Present Monitor Decelerations: None Plan Plan: 1. labor: Continues to progress on cervical dilation, feeling more and more symptomatic and would like to proceed with epidural. Continue observati on/allow delivery. Continue ampicillin GBS unknown. We did expedite the second dose of betamethasone and this was given today at around 9:30am. 2. CHTN: restarted on labetalol 100mg BID yesterday and doing well. HELLP labs upon admission normal. Will continue close monitoring. 3. Peds notified to attend delivery.
[2024-09-30] MEDS: LIDOCAINE 2% (PF) 5 ML VIAL EPIDURAL (10:47)
[2024-09-30] MEDS: ROPIVACAINE 0.2 % PF 10 ML INJ 20 MG EPIDURAL (10:47)
[2024-09-30] MEDS: ROPIVACAINE 0.2% 100 ml 100 ML 12 MG EPIDURAL ×2 (10:55→19:19)
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
[2024-09-30] MEDS: PHENYLEPHRINE 100 MCG/ML SYRINGE IVP (12:29)
[2024-09-30] MEDS: LACTATED RINGERS 1000 ML 1,000 ML 50 ML IV (20:02)
--- NOTE | 2024-09-30 21:28 | PM.OBPNL ---
Subjective Time Seen by Provider: 21:28 Date Seen: 09/30/24 Objective Vital Signs: Last Vital Signs Temp 98.2 F 09/30/24 20:34 Pulse 104 H 09/30/24 21:26 Resp 18 09/30/24 20:34 BP 119/63 09/30/24 21:26 Pulse Ox 90 09/30/24 10:49 Pelvic Exam Dilation (cm): 7.5 Effacement (%): 100 Station: 0, +1 Contractions Monitor mode: External Contraction pattern: Regular Contraction intensity: Moderate Assessment Station: +1 Amniotic Membrane Status: AROM Status: Category l Heart Rate Baseline: 140 Longterm Variability: Moderate (6-25) Monitor Accelerations: Present Monitor Decelerations: None Plan Plan: labor, patient has kept progressing throughout the day. At the moment 7.5cm dilated, 100% effaced, +1 station with contractions, bulging membranes, recommendation given for AROM. Completed, clear fluid and patient tolerated procedure well. Expect delivery soon. NST category 1.
[2024-09-30 22:19] LABS: Clue Cells No Clue Cells Seen (None Seen); Trichomonas No Trichomonas Seen (None Seen); Yeast No Yeast Seen (None Seen)
[2024-10-01] VITALS (29 sets, daily range): BP systolic 107–153; BP diastolic 53–89; PULSE 72–117; RESP 14–18; TEMP 36.1–37.7; O2SAT 90–97
[2024-10-01] MEDS: AMPICILLIN 1 GM in 0.9 % SODIUM CHLORIDE Mini-bag 100 ML IVPB (02:30)
[2024-10-01] MEDS: OXYTOCIN 30 unit/500 ML in NS 30 UNIT/500 ML BAG IVPB (03:00)
--- NOTE | 2024-10-01 04:29 | W.PM.OBVAGDE ---
OB Procedure Vag Delivery Mother Details Mother Details: The patient is a 19 year-old, 2, Para 0111, admitted on 09/29/24 at 35 1/7 Days gestation. Patient admitted in labor, continued to experience regular and painful uterine contractions and cervical change. Labor was allowed to continue. She received a course of steroids during admission, was treated with IV antibiotics for GBS prophylaxis due to unknown status and prematurity. After more than 24 hours of admission and cervical dilation of 7-8cm, recommendation was given to proceed with AROM and patient continued to progress to full dilation. Patient was already very tired of the length of labor and pushing started with poor maternal efforts as well as baby in a LOT position. Manual rotation was performed and IV Oxytocin started on the second stage of labor to help maternal efforts. : 2 Para: 1 Weeks Gestation: 35.3 Admission Date: 09/29/24 Additional Details Amniotic Membrane Status: AROM Amniotic Membrane Rupture Date: 09/30/24 Amniotic Membrane Rupture Time: 21:22 Amniotic Membrane Fluid Description: Clear Analgesia/Anesthesia Type: Epidural Waterbirth: No Pitcoin: Yes (Second stage) Intrapartal Events: Labor Augmentation Delivery augmentation: rupture of membranes and pitocin Labor Onset: 19:00 Complete: 01:42 Pushin:42 Heart: heart tones during second stage were category 2. Delivery Details Delivery Date: 10/01/24 Delivery Time: 04:14 Route of delivery: Infant Gender: Female Infant Viability: Alive; Heart Rate Present Position at Delivery: OA Delivery Details: Delivered over intact perineum via spontaneous vaginal delivery. Infant was placed on maternal abdomen.? Cord was clamped and cut after a 30-60 second delay. Nose and mouth were bulb suctioned.? Infant weight: 5 pounds 6 ounces. 1 Minute Interval Total Score: 8 5 Minute Interval Total Score: 9 Additional Details Shoulder Dystocia: No Placenta Delivery Time: 04:21 Placental Delivery Description: Spontaneous Procedure Done: Global Blood Loss: 100 Laceration: Periurethral - 1st Degree (Not bleeding, not repaired.) Episiotomy Description: None Blood Loss Measurement Type: QBL Bakri Used: No Sponge/Need Count Correct: Yes Cord Vessel Description: 3 Vessels, Nuchal Cord and Reduced Event Summary Status: Mother and infant were stable after delivery. Disposition: floor
[2024-10-01] MEDS: ACETAMINOPHEN 500 MG TABLET 1000 MG PO ×2 (06:16→16:48)
[2024-10-01 08:24] LABS: Strep B DNA Probe Negative (Negative)
[2024-10-01 08:42] LABS: Strep B Susceptibility Needed? No
[2024-10-01] MEDS: IBUPROFEN 600 MG TABLET PO (11:03)
[2024-10-01] MEDS: LANOLIN CREAM 1 APPLIC TOPICAL (16:47)
[2024-10-01] MEDS: DOCUSATE SODIUM 100 MG CAPSULE PO (16:48)
[2024-10-01] MEDS: LABETALOL HCL 100 MG TABLET PO (20:48)
[2024-10-02] VITALS (7 sets, daily range): BP systolic 99–132; BP diastolic 65–91; PULSE 70–94; RESP 16–18; TEMP 36.3–36.8; O2SAT 95–98
[2024-10-02] MEDS: IBUPROFEN 600 MG TABLET PO ×3 (01:49→20:46)
[2024-10-02 06:29] LABS: Hemoglobin* 9.9 gm/dL (12.0-16.0)
[2024-10-02] MEDS: ACETAMINOPHEN 500 MG TABLET 1000 MG PO ×3 (07:32→23:05)
[2024-10-02] MEDS: DOCUSATE SODIUM 100 MG CAPSULE PO (07:32)
[2024-10-02] MEDS: LABETALOL HCL 100 MG TABLET PO ×2 (09:03→20:44)
--- NOTE | 2024-10-02 11:03 | P.OBPN_ITS ---
OB - PN:Subj Subjective Date Seen: 10/02/24 Narrative: ?Christine is a 19 you who was admitted for labor and went on to have a vaginal at 35w3d with a 1st degree periurethral laceration that was hemostatic and not repaired. The patient feels well.? The pain is well contr olled with current medications.? She has no new complaints.? Urinary output is adequate and she is voiding without difficulty.? Has a good appetite, is tolerating a general diet, is passing flatus, and has had a bowel movement.? Has scant amount of rubra lochia but did pass one 6cm clot with no increase in bleeding afterwards.? She is ambulating well. She is trying to latch the baby and pumping as much as able. Baby girl is currently under bili lights in the room. ? OB - PN: Obj Exam Physical Exam: Vital signs: Temp Pulse Resp BP Pulse Ox O2 Del Method 97.5 F L 70 16 126/79 97 Room Air 10/02/24 07:40 10/02/24 07:40 10/02/24 07:40 10/02/24 07:40 10/02/24 07:40 10/02/24 07:40 Narrative: GENERAL APPEARANCE:? normal affect, alert, no distress MOOD:? appropriate ABDOMEN:? soft, non-tender the uterine fundus is 1 cm below Umbilicus, Midline and is appropriate for the stage of recovery. PERINEUM:? deferred EXTREMITIES:? normal and minimal edema OB - PN: Obj Data Labs Labs: Laboratory Results - last 24 hr 10/02/24 06:19 Hgb 9.9 L OB - PN: A/P Delivery Assessment and Plan (1) delivery: Status: Acute (2) care and examination of lactating mother: Status: Acute Plan Comments: PP day #1 Routine care May see as desired Anticipate discharge 10/03/2024, but we will arrange for her to stay in house if baby is not discharged.
--- NOTE | 2024-10-02 11:07 | PM.ANPOST ---
Post Anesthesia Note Post Anesthesia Note Patient seen: Inpatient Respiratory Status: adequate Cardiovascular Status: adequate Mental Status: baseline Pain: adequate Temp: baseline Anesthetic awareness: N/A Complications: none Follow care: none
[2024-10-03 03:13] VITALS: BP 122/74; PULSE 81; RESP 17; TEMP 36.8; O2SAT 98
[2024-10-03] MEDS: IBUPROFEN 600 MG TABLET PO ×2 (03:17→09:57)
[2024-10-03 07:54] VITALS: BP 124/66; PULSE 76; RESP 16; TEMP 36.9; O2SAT 96
[2024-10-03] MEDS: ACETAMINOPHEN 500 MG TABLET 1000 MG PO (07:59)
[2024-10-03] MEDS: LABETALOL HCL 100 MG TABLET PO (08:00)
[2024-10-03] MEDS: DOCUSATE SODIUM 100 MG CAPSULE PO (08:00)
[2024-10-03] MEDS: FERROUS SULFATE 325 MG TABLET PO (09:58)
--- NOTE | 2024-10-03 10:17 | P.DS_ITS ---
DS: Providers Provider Date Seen: 10/03/24 Date of admission: 09/29/24 22:46 Primary care physician: Not a Local Provider Admitting Clinician: Alis Corea MD Attending Physician on discharge: Alis Corea MD Date of Discharge: 10/03/24 DS: Diagnosis Discharge Diagnosis (1) care and examination of lactating mother: Status: Acute (2) Chronic hypertension in obstetric context: Status: Acute (3) delivery: Status: Acute Exam Narrative: Exam Narrative: VSS, afebrile GENERAL APPEARANCE: ?normal affect, alert, no distress MOOD: ?appropriate HEENT: normocephalic, neck supple, full ROM CHEST: ?Symmetrical chest wall movement. ?Normal respiratory effort. ?Clear to auscultation HEART: ?regular rate and rhythm ABDOMEN: ?soft, non-tender. Uterine fundus is firm, at Umbilicus, Midline and is appropriate for the stage of recovery. ?Bowel sounds present. PERINEUM: ?mild edema of the perineum, there is a periurethral laceration that is healing well. EXTREMITIES: ?normal and trace edema Const: Vital Signs, click to edit/add: Vital Signs - 24 hr 10/02/24 12:55 10/02/24 16:40 10/02/24 19:40 Temperature 97.4 F L 97.9 F 98.2 F Pulse Rate [Pulse Oximeter] 83 81 81 Respiratory Rate 16 16 16 Blood Pressure [Le ft Arm] 115/68 99/65 110/67 Pulse Oximetry 95 97 98 Oxygen Delivery Me thod Room Air Room Air Room Air 10/02/24 23:11 10/03/24 03:13 10/03/24 07:54 Temperature 97.9 F 98.2 F 98.4 F Pulse Rate [Pulse Oximeter] 81 81 76 Respiratory Rate 17 17 16 Blood Pressure [Le ft Arm] 132/91 H 122/74 124/66 Pulse Oximetry 98 98 96 Oxygen Delivery Me thod Room Air Room Air Room Air Documenting provider has reviewed patient's vital signs: yes OB - DS: Summary Hospital Course Hospital Course: Christine is a 19 y.o. who was admitted to [facility] for labor. ?She had an uncomplicated NVD.?The patient feels well. ?The pain is well controlled with current medications. ?She has no new complaints. ?She is breast feeding and reports things are going well, her infant is not latching often so she is also pumping.? the patient has done well.? Vitals have been stable.? She has remained afebrile.? Has a good appetite, is tolerating a g eneral diet. ?She is voiding without difficulty.? She is passing gas and has not had a bowel movement.? She is ambulating and denies any dizziness.? Has Small amount of rubra lochia. ?She is planning the mini pill for prevention. She will discharge from care today, she plans to stay in the hospital with her who will not discharge today. Peripartum Data Infant delivery method: Vaginal Laceration description: Periurethral - 1st Degree complications: none [place] Gender: Female Discharge Plan: Home Status at Discharge Functional status at discharge: independent ambulation Overall status at discharge: patient is progressing back to baseline Time Spent with Patient Time attestation: Total time spent providing and/or coordinating discharge services: Time spent: Less than 30 minutes Discharge Plan Discharge Disposition: Home, Self-Care Date of Admission: 09/29/24 22:46 Attending Provider on Discharge: Esperanza Reddy Primary Care Provider: Provider,Not a Local Condition: Stable Anticipated Discharge Date/Time: 10/03/24 12:00 Discharge Medications: New acetaminophen 500 mg Tablet 1,000 mg PO Q6H PRNQty: 0 0RF ferrous sulfate 325 mg (65 mg iron) Tablet 325 mg PO Q48H Qty: 30 0RF docusate sodium 100 mg Capsule 100 mg PO DAILY Qty: 9 1RF ibuprofen 600 mg Tablet 600 mg PO Q6H PRNQty: 60 0RF labetalol 100 mg Tablet 100 mg PO BID Qty: 60 0RF Continued PNV 119-iron fum-folic acid 29 mg iron- 1 mg tablet 1 tab PO DAILY omeprazole 20 mg capsule,delayed release(DR/EC) 20 mg PO DAILY Qty: 60 2RF Rx Instructions: Please take 20mg omeprazole 1-2x daily for acid reflux Discharge Orders: Discharge Order (Routine); Ordered 10/03/24 Ordered By: Esperanza Reddy Patient Education: Vaginal Delivery (DC), OB Over the Counter Medication Information, OB Vaginal/Breast Feeding Additional Instructions: Discharge instructions were reviewed with the patient including signs and sym ptoms of infection and home going medications Nothing vaginally for 6 weeks: no tampons or intercourse Do not drive while taking narcotic pain medication(s) Off Work or School for 8 weeks Symptoms to report to doctor: * Bleeding that saturates more than one pad per hour * Passing clots larger than the size of a golf ball * Pain not relieved by prescribed medication * Fever above 100.4 degrees Fahrenheit * A foul vaginal odor * Difficulty in emotions, mood, and functions * Thoughts of hurting yourself and/or * Painful, reddened area in your breast * Any drainage, redness, or tenderness in your IV/epidural site * Severe headache that doesn't improve after taking medications * Changes in vision, including temporary loss of vision, blurred vision, and/or light sensitivity * Upper abdominal pain (usually under ribs on the right side) * Decrease in urination or painful, frequent urinating * Chest pain * Shortness of breath * Tenderness or pain with redness and/swelling in the calf(s) of your leg [facility] for a BP check?[10/05 or 10/06] Call with BP greater than or equal to 150/100 2-week visit: discuss infant feeding concerns, review control options and screen for anxiety/depression. 6-week visit for an annual exam. consultation services are available to all mothers and babies for the first year after delivery.? To make an appointment, please call [phone]. Activity Level: Activity as Tolerated Discharge Diet: Regular Follow Up Appointments: [facility] [Provider Group] Forms: [facility] Info Instructions
--- NOTE | 2024-10-03 12:00 | PC.NURSE ---
Patient discharged but will stay to be with her . Mother is picking up patients prescriptions.
== END 2024-10-03 12:08 | disposition home or self-care (01) | DRG 805 ==
LOC: OB OUT 10-02 11:53 → OB 10-02 11:53
PROVIDERS: Obstetrics & Gynecology; Admitting Provider Obstetrics & Gynecology; Referring Provider Obstetrics & Gynecology; Visit Provider Obstetrics & Gynecology
DX: O10.02 Pre-existing essential hypertension complicating childbirth (principal); O60.14X0 Preterm labor third trimester with preterm delivery third trimester, not applicable or unspecified; Z37.0 Single live birth; Z3A.35 35 weeks gestation of pregnancy; O99.62 Diseases of the digestive system complicating childbirth; K21.9 Gastro-esophageal reflux disease without esophagitis; O99.344 Other mental disorders complicating childbirth; F41.9 Anxiety disorder, unspecified; F32.A Depression, unspecified; F43.10 Post-traumatic stress disorder, unspecified; F12.11 Cannabis abuse, in remission; Z78.9 Other specified health status; O70.0 First degree perineal laceration during delivery
CPT/HCPCS: 01967; 36415; 80306; 81001; 81003; 82565; 82570; 84156; 84450; 84460; 84520; 84550; 85018; 85027; 85384; 85610; 85730; 86592; 87081; 87086; 87210; 87653; 88307; G0463; A9270; J0290; J0702; J2270; J2371; J2795; J7120

== ENCOUNTER 2024-11-16 15:35 | Outpatient (CLI) | payer MEDICAID, SELFPAY ==
[2024-11-27 15:34] LABS: Pap Test Reviewed by Path Done
== END 2024-11-16 15:36 | disposition home or self-care (01) ==
LOC: NFLDREF 15:36
PROVIDERS: Visit Provider Physician Assistant
DX: Z12.4 Encounter for screening for malignant neoplasm of cervix (principal)
CPT/HCPCS: 87624; 87625; 88141; 88142